=== PATIENT | male | born 1995 | race Hispanic/Latino ===

== ENCOUNTER 2023-08-17 03:26 | Emergency (ER) | payer OTHER ==
[~2023-08-17] VITALS: Ht 177.8 cm; Wt 72.6 kg
[2023-08-17] MEDS ORDERED: CEPH500B PO (04:07)
[2023-08-17 04:21] VITALS: BP 128/78; PULSE 106; RESP 18; O2SAT 99
== END 2023-08-17 04:23 ==
LOC: EDH 03:26
DX: S51.812A Laceration without foreign body of left forearm, initial encounter (principal); F17.200 Nicotine dependence, unspecified, uncomplicated; X58.XXXA Exposure to other specified factors, initial encounter; Y93.9 Activity, unspecified; Y92.89 Other specified places as the place of occurrence of the external cause; Y99.8 Other external cause status
CPT/HCPCS: 12002; 73090

== ENCOUNTER 2025-02-02 10:17 | Emergency (ER) | payer OTHER, BC ==
[~2025-02-02] VITALS: Ht 175.3 cm; Wt 81.6 kg
[~2025-02-02 10:17] MED LIST: CEPH500B PO
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
[2025-02-02] MEDS: LIDOCAINE HCL 1% 20 ML VIAL INJ STA (11:16)
[2025-02-02 11:19] VITALS: BP 124/65; PULSE 85; RESP 16; TEMP 98.3; O2SAT 98
--- NOTE | 2025-02-02 11:50 | NUR ---
5 sutures placed wound clean dry and intact pt informed and educated of wound care and informed 7-10 days for removal
[2025-02-02] MEDS: OCTYL 2-CYANOACRYLATE 1 EACH TP ONE (11:51)
== END 2025-02-02 11:57 | disposition home or self-care (01) ==
LOC: EEVIPCON 10:17 → EDH 10:17
DX: S51.812A Laceration without foreign body of left forearm, initial encounter (principal); F17.200 Nicotine dependence, unspecified, uncomplicated; Z98.890 Other specified postprocedural states; X58.XXXA Exposure to other specified factors, initial encounter; Y93.89 Activity, other specified; Y92.89 Other specified places as the place of occurrence of the external cause; Y99.8 Other external cause status
CPT/HCPCS: 12002; 99282